=== PATIENT | female | born 1955 | race Caucasian/White ===

== ENCOUNTER → 2021-01-28 13:26 | Outpatient (BNVA) | payer OTHER, SELFPAY | PROVIDERS: Visit Provider Internal Medicine ==

== ENCOUNTER 2021-02-20 05:53 | Outpatient (REF) | payer OTHER, SELFPAY | END 2021-02-20 05:54 | disposition home or self-care (01) | LOC: HO.RADIR 05:53 | PROVIDERS: Visit Provider Internal Medicine | DX: Z13.89 Encounter for screening for other disorder (principal) ==

== ENCOUNTER 2021-02-27 06:16 | Outpatient (REF) | payer OTHER, SELFPAY | END 2021-02-27 06:17 | disposition home or self-care (01) | LOC: HO.RADIR 06:16 | PROVIDERS: Visit Provider Internal Medicine | DX: Z13.89 Encounter for screening for other disorder (principal) ==

== ENCOUNTER 2021-03-27 06:08 | Outpatient (REF) | payer OTHER, SELFPAY ==
--- NOTE | ~2021-03-27 | FL_ITS ---
EXAMINATION: XR FLUOROSCOPY WITH IMAGES CLINICAL INFORMATION: Sacrococcygeal disorder COMPARISON: None. TECHNIQUE: Fluoroscopy performed by Dr Honeycutt. Fluoroscopy time: 0.2 minutes DAP: 0.5 Gycm2 Images: 2 FINDINGS: Images demonstrate needle placement projecting over the right sacroiliac joint. FL/FL guidance in treatment room IMPRESSION: Fluoroscopic guidance for pain management procedure.
== END 2021-03-27 06:09 | disposition home or self-care (01) ==
LOC: HO.RADIR 06:08
PROVIDERS: Visit Provider Internal Medicine
DX: M53.3 Sacrococcygeal disorders, not elsewhere classified (principal); I10 Essential (primary) hypertension; E78.5 Hyperlipidemia, unspecified; F41.8 Other specified anxiety disorders; F17.210 Nicotine dependence, cigarettes, uncomplicated
CPT/HCPCS: J1040; Q9967

== ENCOUNTER 2021-04-03 06:00 | Outpatient (REF) | payer OTHER, SELFPAY ==
--- NOTE | ~2021-04-03 | FL_ITS ---
EXAMINATION: XR FLUOROSCOPY WITH IMAGES CLINICAL INFORMATION: M53.3 - Sacrococcygeal disorders, not elsewhere classified COMPARISON: Fluoroscopic spot views 03/27/2021 TECHNIQUE: Fluoroscopy performed by Dr. Didier Gavin. Fluoroscopy time: 0.2 minutes DAP: 0.638 Gycm2 Images: 2 FINDINGS: Spinal needle overlies mid right SI joint. Lateral view shows the needle tip at mid depth SI joint. FL/FL guidance in treatment room IMPRESSION: Fluoroscopy for pain management procedure.
== END 2021-04-03 06:01 | disposition home or self-care (01) ==
LOC: HO.RADIR 06:00
PROVIDERS: Visit Provider Internal Medicine
DX: M53.3 Sacrococcygeal disorders, not elsewhere classified (principal)
CPT/HCPCS: J1040; Q9967

== ENCOUNTER → 2021-04-05 11:27 | Outpatient (BNVA) | payer OTHER, SELFPAY | PROVIDERS: PCP Physical Medicine & Rehabilitation; Visit Provider Internal Medicine ==

== ENCOUNTER 2022-12-15 12:44 | Outpatient (AMB) | payer OTHER, SELFPAY ==
[2022-12-15 12:58] VITALS: BP 138/83; PULSE 61; RESP 12; BMI 26.5
--- NOTE | 2022-12-15 12:58 | MHC.OFFVIS ---
Intake Vital Signs 12/15/22 12:58 Height 5 ft 6 in Weight 164 lb BMI 26.5 BP 138/83 Blood Pressure Location Lt brachial Position Sitting Respiration 12 Pulse 61 Pulse Source Pulse Oximeter Intake Visit Reasons: injection discussion /confirmed Allergies hydrocodone Adverse Reaction (Severe, Verified 12/15/22 13:00) n/v tramadol Adverse Reaction (Severe, Verified 12/15/22 13:00) pancreatitis gabapentin Adverse Reaction (Intermediate, Verified 12/15/22 13:00) blurred vision Medication List - Last Reconciled 12/15/22 by Penelope Charles LPN atorvastatin 10 mg PO DAILY lorazepam 0.5 mg PO BID PRN metoprolol tartrate 50 mg PO DAILY oxycodone 5 mg PO QID PRN quetiapine mg PO venlafaxine ER 225 mg PO DAILY HPI injection discussion /confirmed HPI Details 67-year-old female who presents today to the office for a discussion of injection. She reports pain in her low back and buttocks. Pain is described as stabbing in nature that interferes with sleep and daily activities. She states that her sciatica pain is the same as it was before. She has to sit down or lay on the recliner to alleviate the pain. She performs stretching exercises at home. She is using the SIJ belt, which was provided by Dr. Bates. She is a smoker. She has tried physical therapy, chiropractic manipulation, and TENS therapy in the past without much relief. She denies any lower extremity weakness. Past procedures: 04/03/2021: Therapeutic intra-articular SIJ injection with bupivacaine + DepoMedrol 40m% relief, ongoing 2 days out 03/27/2021: Diagnostic intra-articular SIJ injection with bupivacaine only: 90% relief for 1 day [facility] Medical History (Updated 01/29/21 @ 15:23 by Didier Gavin MD) Sacroiliac joint dysfunction of right side Current smoker HTN (hypertension) Anxiety Depression Hyperlipidemia Social History (Updated 01/28/21 @ 14:07 by Ayden Riojas) Patient Tobacco Use Status: Current everyday Tobacco user Cigarette Packs Per Day: 0.5 Review of Systems Const All systems reviewed & are unremarkable except as noted in HPI and below Physical Exam Vital Signs: Last Vital Signs Pulse 61 12/15/22 12:58 Resp 12 12/15/22 12:58 BP 138/83 12/15/22 12:58 BMI result Body Mass Index 26.5 General: Appears afebrile. Alert and oriented. Mood and affect appropriate. Follows and participates in conversation appropriately. Respiratory effort is unlabored. Able to transition from sit to stand unassisted. Ambulates with bilaterally normal heel strike and toe off. YEFRI and Gaenslen's Test, SI joint distraction, thigh thrust and compression were all positive Results Reviewed Results Reviewed: 06/24/22: MR LUMBAR SPINE. Assessment & Plan Assessment & Plan (1) Sacroiliac joint dysfunction of right side: Code(s): M53.3 - Sacrococcygeal disorders, not elsewhere classified Plan Physical exam and prior history consistent with sacroiliac joint dysfunction in setting of prior lumbar spine surgery. I ordered an MRI scan of the sacroiliac joint for further evaluation in anticipation of potential right SI joint fusion. The patient continues to smoke. I counseled her that she will need to stop smoking for at least six weeks prior to proceeding with posterior SIJ fusion. Follow-up after SI joint MRI. Scribed for Dr. Gavin by Arpit Canchola, medical doctor md, on 12/15/2022. I, Dr. Gavin, have personally reviewed and agree with the information entered by the scribe. Orders: Orders MR sacroiliac joint FARAZ wo con 12/15/22 M53.3 - Sacrococcygeal disorders, not elsewhere classified Coding Level of Care Code Est Pt Level 3 (76242) Diagnoses Sacroiliac joint dysfunction of right side M53.3
== END 2022-12-15 13:53 | disposition home or self-care (01) ==
PROVIDERS: PCP Physical Medicine & Rehabilitation; Visit Provider Internal Medicine
DX: M53.3 Sacrococcygeal disorders, not elsewhere classified (principal)
CPT/HCPCS: 99213

== ENCOUNTER → 2022-12-15 12:44 | Outpatient (BNVA) | payer OTHER, SELFPAY | PROVIDERS: PCP Physical Medicine & Rehabilitation; Visit Provider Internal Medicine ==

== ENCOUNTER 2023-03-13 11:00 | Outpatient (AMB) | payer OTHER, SELFPAY ==
[2023-03-13 11:09] VITALS: BP 123/79; PULSE 59; RESP 12; O2SAT 99; BMI 27.0
--- NOTE | 2023-03-13 11:09 | A.OFFVIS_ITS ---
Intake Vital Signs 03/13/23 11:09 Height 5 ft 6 in Weight 167 lb BMI 27.0 BP 123/79 Blood Pressure Location Lt brachial Position Sitting Respiration 12 Pulse 59 Pulse Source Pulse Oximeter Pulse Oximetry (%) 99 Oxygen Delivery Method Room Air Intake Visit Reasons: Follow up/Disorder of Sacrum Allergies hydrocodone Adverse Reaction (Severe, Verified 03/13/23 11:12) n/v tramadol Adverse Reaction (Severe, Verified 03/13/23 11:12) pancreatitis gabapentin Adverse Reaction (Intermediate, Verified 03/13/23 11:12) blurred vision Medication List - Last Reconciled 03/13/23 by Penelope Charles, [place] atorvastatin 10 mg PO DAILY lorazepam 0.5 mg PO BID PRN metoprolol tartrate 50 mg PO DAILY oxycodone 5 mg PO QID PRN quetiapine 25 mg PO BEDTIME PRN venlafaxine ER 225 mg PO DAILY HPI Follow up/Disorder of Sacrum HPI Details 67-year-old female who presents today to the office for a follow-up disorder of the sacrum. She states that she has already exhausted physical therapy in the past. She has completed three different physical therapy sessions on different occasions in the past. Her last physical therapy was in 2014, and she has done only 3?4 sessions. Her insurance has declined her MRI scan due to lack of recent history of physical therapy. Past procedures: 04/03/2021: Therapeutic intra-articular S IJ injection with bupivacaine + DepoMedrol 40m% relief, ongoing 2 days out 03/27/2021: Diagnostic intra-articular SIJ injection with bupivacaine only: 90% relief for 1 day [facility] Medical History (Updated 01/29/21 @ 15:23 by Didier Gavin MD) Sacroiliac joint dysfunction of right side Current smoker HTN (hypertension) Anxiety Depression Hyperlipidemia Social History (Updated 01/28/21 @ 14:07 by Ayden Riojas) Patient Tobacco Use Status: Current everyday Tobacco user Cigarette Packs Per Day: 0.5 Review of Systems Const All systems reviewed & are unremarkable except as noted in HPI and below Physical Exam Vital Signs: Last Vital Signs Pulse 59 03/13/23 11:09 Resp 12 03/13/23 11:09 BP 123/79 03/13/23 11:09 Pulse Ox 99 03/13/23 11:09 Oxygen Delivery Method Room Air 03/13/23 11:09 BMI result Body Mass Index 27.0 General: Appears afebrile. Alert and oriented. Mood and affect appropriate. Follows and participates in conversation appropriately. Respiratory effort is unlabored. Able to transition from sit to stand unassisted. Ambulates with bilaterally normal heel strike and toe off. Results Reviewed Results Reviewed: No imaging is available for review. Assessment & Plan Assessment & Plan (1) Sacroiliac joint dysfunction of right side: Code(s): M53.3 - Sacrococcygeal disorders, not elsewhere classified Plan Physical exam and prior history consistent with sacroiliac joint dysfunction in setting of prior lumbar spine surgery. I ordered an MRI scan of the sacroiliac joint for further evaluation in anticipation of potential right SI joint fusion. The patient continues to smoke. I counseled her that she will need to stop smoking for at least six weeks prior to proceeding with posterior SIJ fusion. A referral was provided to physical therapy. A script was also provided to the patient for physical therapy. She will get herself evaluated at PT and contact us after formal PT for consideration of SI joint CT scan. Scribed for Dr. Gavin by Arpit Canchola, ophthalmic medical assistant, on 03/13/2023. I, Dr. Gavin, have personally reviewed and agree with the information entered by the scribe. Orders: Orders PT Evaluation and Treatment 03/13/23 M53.3 - Sacrococcygeal disorders, not elsewhere classified Coding Level of Care Code Est Pt Level 3 (39051) Diagnoses Sacroiliac joint dysfunction of right side M53.3
== END 2023-03-13 11:41 | disposition home or self-care (01) ==
PROVIDERS: PCP Nurse Practitioner Family; Visit Provider Internal Medicine
DX: M53.3 Sacrococcygeal disorders, not elsewhere classified (principal)
CPT/HCPCS: 99213

== ENCOUNTER → 2023-03-13 11:00 | Outpatient (BNVA) | payer OTHER, SELFPAY | PROVIDERS: PCP Nurse Practitioner Family; Visit Provider Internal Medicine ==

== ENCOUNTER 2024-02-19 17:42 | Outpatient (REF) | payer OTHER, SELFPAY ==
--- NOTE | ~2024-02-19 | MR_ITS ---
CLINICAL HISTORY: PERSISTENT SI JOINTS PAIN - PRE-OP MR pelvis without gadolinium Comparison: None Findings: Pronounced facet arthritis cvict-xvjeuue-jovi-left at L5-S1 with reactive marrow change involving the posterior aspect of the S1 vertebrae on the right. Remainder of the marrow signal is normal. Normal-appearing SI joints. No ankylosis. No marrow like edema. No erosions. Normal marrow signal of the pubic rami. Intact symphysis pubis. Physiologic amount of fluid in both hips. Superior joint space narrowing both hips with near fywp-li-wayn appearance. No reactive subchondral marrow changes or significant hypertrophic changes. No erosions. Degenerative signal changes within the acetabular labrum without large or displaced labral tear on either side. No paralabral cyst. Degenerative changes lumbar spine with mid lumbar dextroscoliosis. Prominent Modic type 1 reactive endplate changes L3-4. Lateral recess narrowing and foraminal narrowing eccentric to the left at L2-3, L3-4 and changes greater to the right at L4-5 with prior right hemilaminectomy. Marked facet arthritis ubehu-hqihixr-izuq-left at L5-S1. Subligamentous disc protrusion and annular fissuring. Patent L5 foramina. Suboptimal assessment of the lumbar spine on large bobto-gt-yrcf imaging. 19 mm cyst without solid component or septations in the left ovary, compatible with an O-RADS 2, almost certainly benign lesion. Urinary bladder intact. Sigmoid diverticulosis without objective features of acute diverticulitis. IMPRESSION: Normal-appearing SI joints. Pronounced lower lumbar facet arthritis most pronounced L5-S1 pojdo-rkupgmf-jvgk-left with marrow like edema involving the posterior aspect of the upper sacrum. Additional degenerative changes lumbar spine as noted. Consider follow-up dedicated lumbar spine MRI if clinical management warrants. Mild degenerative arthritis in the hips greater superiorly. No significant hypertrophic changes. No erosions. Soft tissues intact. Small cyst left ovary as detailed. No follow-up required. This document has been electronically signed by: Jax Ocasio MD on 02/23/2024 13:28:10
== END 2024-02-19 17:43 | disposition home or self-care (01) ==
LOC: HO.MRI 17:42
PROVIDERS: PCP Nurse Practitioner Family; Visit Provider Internal Medicine
DX: M53.3 Sacrococcygeal disorders, not elsewhere classified (principal)
CPT/HCPCS: 72195

== ENCOUNTER → 2024-02-19 17:45 | Outpatient (BNV) | payer OTHER, SELFPAY | PROVIDERS: PCP Nurse Practitioner Family; Visit Provider Radiology Diagnostic Radiology | DX: M53.3 Sacrococcygeal disorders, not elsewhere classified (principal) | CPT/HCPCS: 72195 ==

== ENCOUNTER 2024-03-14 13:22 | Outpatient (AMB) | payer OTHER, SELFPAY ==
--- NOTE | 2024-03-14 13:24 | MHC.OFFVIS ---
Vital Signs 03/14/24 13:25 Height 5 ft 7 in Weight 171 lb BMI 26.8 BP 153/74 H Blood Pressure Location Lt brachial Position Sitting Respiration 16 Pulse 70 Pulse Source Pulse Oximeter Pulse Oximetry (%) 92 Oxygen Delivery Method Room Air Intake Visit Reasons: Discuss MRI Results Allergies hydrocodone Adverse Reaction (Severe, Verified 03/14/24 13:27) n/v tramadol Adverse Reaction (Severe, Verified 03/14/24 13:27) pancreatitis gabapentin Adverse Reaction (Intermediate, Verified 03/14/24 13:27) blurred vision Medication List - Last Reconciled 03/14/24 by Penelope Charles LPN atorvastatin 10 mg PO DAILY lorazepam 0.5 mg PO BID PRN metoprolol tartrate 50 mg PO DAILY oxycodone 5 mg PO QID PRN quetiapine 25 mg PO BEDTIME PRN venlafaxine ER 225 mg PO DAILY HPI HPI Discuss MRI Results: Details: History of Present Illness The patient is a 68-year-old female presenting with persistent right-sided lower back pain. She reports the pain has been ongoing for years, with occasional exacerbations. The pain was previously believed to be associated with her sacroiliac joint; however, an MRI of the sacroiliac joint was read as normal, dismissing sacroiliitis as a source. More recently, imaging revealed significant arthritis at the right L5-S1 facet joint with an accompanying inflammatory response. The patient has experienced two distinct types of pain, one at S1 and another unspecified. She feels disappointed by the ongoing discomfort despite past conservative measures, such as physical therapy and medications like oxycodone and amlofaxine. The patient's was involved in advocating for past treatment options, such as discussions about experimental SI joint interventions, ultimately denied by insurance. Pain Description - Onset and Timing: Chronic, with longstanding symptoms of several years - Quality and Character: Persistent and aching, corresponding to the inflammatory features at the L5-S1 facet joint on the right - Primary Location: Right-sided lower back - Radiation: Pain may radiate down the leg, stopping at the back of the knee - Exacerbating Factors: Long-term postural habits such as sitting with the right leg up - Relieving Factors: Limited success; prior physical therapy reportedly worsened symptoms - Activities Interference: General limitations on daily activities and physical functioning Physical Exam - Facet loading is positive on the right - Imaging: Normal MRI of the sacroiliac joint; MRI showing significant arthritis and degenerative changes at right L5-S1 facet - Notable findings: Vertebral endplate changes, degenerative disc changes, multifidus dysfunction Pain Management - Affect: Disappointment and frustration due to the lack of progress despite efforts - Analgesia: Currently on oxycodone 5 mg for pain relief, which aids in general function - Adverse Effects: Not explicitly discussed - Activities of Daily Living: Pain inhibits function and mobility, affecting daily tasks - Aberrant Drug-Related Behaviors: None reported [facility] Medical History (Updated 03/14/24 @ 13:55 by Didier Gavin MD) Sacroiliac joint dysfunction of right side Current smoker HTN (hypertension) Anxiety Depression Hyperlipidemia Social History (Updated 01/28/21 @ 14:07 by Ayden Riojas) Patient Tobacco Use Status: Current everyday Tobacco user Cigarette Packs Per Day: 0.5 Physical Exam Vital Signs: Last Vital Signs Pulse 70 03/14/24 13:25 Resp 16 03/14/24 13:25 BP 153/74 H 03/14/24 13:25 Pulse Ox 92 03/14/24 13:25 Oxygen Delivery Method Room Air 03/14/24 13:25 BMI result Body Mass Index 26.8 Assessment & Plan Assessment & Plan (1) Effusion of lumbar facet joint: Code(s): M25.48 - Effusion, other site Category: Medical (2) Vertebrogenic low back pain: Code(s): M54.51 - Vertebrogenic low back pain Category: Medical Plan Plan - Schedule right L5-S1 facet joint aspiration and corticosteroid injection to manage inflammatory component and alleviate pain - Order MRI of the lumbar spine to evaluate vertebral and facet conditions further - Consider temporary nerve stimulation of the L4 medial branch nerve if the facet intervention is ineffective - Explore vertebrogenic pain causations, with potential for basivertebral nerve ablation - Evaluate natural anti-inflammatory supplements such as turmeric for additional support Patient was informed and verbally consented to the use of an ambient scribe for clinic note documentation during this visit. Discussion Notes In our discussion, I explained that the MRI results for the sacroiliac joint were normal, effectively eliminating it as the source of her pain. We emphasized that significant arthritis at the right L5-S1 facet joint was likely contributing to her symptoms. I discussed the option of using a corticosteroid injection into the affected area as a potential relief for her axial pain. Furthermore, we considered the possibility of nerve stimulation and other interventions should pain persist or recur. We addressed possible reasons for insurance denial of previous interventions and clarified the rationale for the proposed treatment plan. I assured her that the focus would be on alleviating pain and improving her quality of life, and we discussed potential imaging follow-up for comprehensive assessment. We also reviewed lifestyle modifications, including the role of turmeric in pain management. Patient Instructions - Undergo a scheduled right L5-S1 facet joint corticosteroid injection - Obtain an MRI of the lumbar spine as instructed - Discuss with me the feasibility of adding turmeric or similar supplements to manage inflammation - Continue current pain medication regimen until further advice - Follow shared plan for pain management strategies and avoidance of exacerbation triggers - Contact my office for any unforeseen changes in symptoms or intolerances Orders: Orders MR lumbar spine wo con 03/14/24 M25.48 - Effusion, other site, M54.51 - Vertebrogenic low back pain Coding Level of Care Code Est Pt Level 4 (06844) Diagnoses Effusion of lumbar facet joint M25.48 Vertebrogenic low back pain M54.51
[2024-03-14 13:25] VITALS: BP 153/74; PULSE 70; RESP 16; O2SAT 92; BMI 26.8
--- OUTSIDE RECORDS SUMMARY | 2024-03-14 18:05 | XMS_ITS | Clinical Summary ---
Author Organization [facility] Address [address] [place] [id number] Care Team Providers Care Industrial Sociologist Name Role Phone Rebecca Dawkins Primary Care Provider [phone] Allergies Active Allergy Reactions Criticality Noted Date Comments Gabapentin Other (See Comments) 04/15/2016 Per patient '' vision issues'' Tramadol Other (See Comments) 04/15/2016 Per patient ''pancreas problem'' Hydrocodone-Acetaminop hen Other (See Comments) 04/15/2016 vomit Medications Medication Sig Dispensed Refills Start Date End Date Status atorvastatin (LIPITOR) tablet 10 mg TAKE 1 TABLET BY MOUTH EVERY DAY 2 03/14/2016 Active metoprolol succinate (TOPROL-XL) 24 hr tablet 25 mg Take 25 mg by mouth daily. 3 01/17/2016 Active metoprolol tartrate (LOPRESSOR) 50 MG tablet TAKE 1 TABLET BY MOUTH WITH FOOD DAILY 1 03/29/2016 Active oxyCODONE (ROXICODONE) 5 MG immediate release tablet Take 5 mg by mouth 3 (three) times a day. 0 04/08/2016 Active venlafaxine (EFFEXOR-XR) 37.5 MG 24 hr capsule TAKE 1 CAPSULE BY MOUTH ONCE DAILY 0 01/23/2016 Active venlafaxine (EFFEXOR-XR) 150 MG 24 hr capsule TAKE ONE CAPSULE BY MOUTH EVERY DAY 3 04/06/2016 Active LORazepam (ATIVAN) 0.5 MG tablet 0.5 mg. 0 04/30/2016 Active pregabalin (LYRICA) 75 MG capsuleIndications:Ch ronic right-sided low back pain with sciatica, sciatica laterality unspecified Take 1 capsule (75 mg total) by mouth 2 (two) times a day. 60 capsule 2 07/18/2016 Active Active Problems Problem Noted Date Diagnosed Date Chronic pain syndrome 10/14/2016 Somatic dysfunction of rib 09/03/2016 Somatic dysfunction of cervical region 7 Somatic dysfunction of sacral region 09/03/2016 Somatic dysfunction of lower extremity 7 Chronic right-sided low back pain with right-maribell ed sciatica 04/15/2016 Lumbar radiculopathy 04/15/2016 Ischial bursitis 04/15/2016 Pelvic region somatic dysfunction 04/15/2016 Myalgia 04/15/2016 Family History Medical History Relation Name Comments Cancer Mother Relation Name Status Comments Mother Social History Tobacco Use Types Packs/Day Years Used Date Smoking Tobacco: Every Day Smokeless Tobacco: Never Alcohol Use Standard Drinks/Week Comments Yes 0 (1 standard drink = 0.6 oz pur e alcohol) Sex and Gender Information Value Date Recorded Sex Assigned at Not on file Gender Identity Not on file Sexual Orientation Not on file Last Filed Vital Signs Vital Sign Reading Time Taken Comments Blood Pressure 142/86 07/17/2016 2:13 PM EDT Pulse 79 07/17/2016 2:13 PM EDT Temperature 36.1 ??C (96.9 ??F) 06/12/2016 12:56 PM E DT Respiratory Rate - - Oxygen Saturation 99% 07/17/2016 2:13 PM EDT Inhaled Oxygen Concentration - - Weight 83.5 kg (184 lb) 07/17/2016 2:13 PM EDT Height 170.2 cm (5' 7 ) 07/17/2016 2:13 PM EDT Body Mass Index 28.82 07/17/2016 2:13 PM EDT Plan of Treatment Health Maintenance Due Date Last Done Comments Hepatitis C Screening 1955 COVID-19 Vaccine (#1) 01[birth year]26/1956 Pneumococcal Vaccine (1 of 2 - PCV) 07/28/1959 Depression Screening 1965 Preventative Health Evaluation 07/28/1971 DTap / Tdap / Td (1 - Tdap) 1972 Colon Cancer Screening (Colonoscopy) 1998 Breast Cancer Screening (Mammogram) 07/28/2003 Shingrix-Zoster Vaccine (1 of 2) 07/28/2003 Fall Risk Assessment 2018 Osteoporosis Screening (DEXA Scan) 2018 Influenza Vaccine (#1) 2023 RSV Adult > 60+ Yrs or Pregn ant (1 - 1-dose 75+ series) 2028 Hepatitis B Vaccines Aged Out No long er eligible based on patient's age to complete this topic RSV Ped < 20 months Aged Out No longe r eligible based on patient's age to complete this topic Care Teams Industrial Sociologist Relationship Specialty Start Date End Date Rebecca Dawkins [address] [place] [id number] PCP - General Family Medicine 04/15/16
--- OUTSIDE RECORDS SUMMARY | 2024-03-14 18:05 | XMS_ITS | Encounter Summary ---
Author Organization [employer] Address [address] [facility] [address] [place] [address] Care Team Providers Care Carburizer Name Role Phone Rebecca Cardenas CNP Primary Care Provider [phone] Reason for Visit * Reason Onset Date Comments Med Refill 02/25/2024 Encounter Details Date Type Department Care Team (Late st Contact Info) Description 02/25/2024 Refill [facility] [address] [place] [address] Rebecca Cardenas CNP [address] [place] [address] Failed back syndrome; Epidural fibrosis Social History Tobacco Use Types Packs/Day Years Used Date Smoking Tobacco: Every Day Cigarettes 0.8 35 Smokeless Tobacco: Never Alcohol Use Standard Drinks/Week Comments Not Currently 0 (1 standard drink = 0.6 oz pur e alcohol) Rarely Depression Answer Date Recorded Patient Health Questionnaire-9 Score 5 07/29/2023 Patient Health Questionnaire-9 Score 5 07/29/2023 Last PHQ-9: Questionnaire Data Not on file 0 07/29/2023 Housing Stability Answer Date Recorded What is your housing situation today? I have martín caballero 11/04/[address] you li ve. Do you have problems with any of the following? None of the above 11/04/2023 Food Insecurity Answer Date Recorded Within the past 12 months, y ou worried that your food would run out before you got money to buy more: Never True 07/29/2023 Within the past 12 months,th e food you bought just didn't last and you didn't have enough money to get more: Never True 01/2024 Transportation Answer Date Recorded In the past 12 months, has l ack of transportation kept you from medical appts, meetings, work or from getting things needed for daily living? No 07/29/2023 Utilities Answer Date Recorded In the past 12 months, has t he electric, gas, oil or water company threatened to shut off services in your home? No 07/29/2023 Depression Answer Date Recorded Patient Health Questionnaire-2 Score 0 11/04/2023 Internet Access Answer Date Recorded Internet Access Q1 Yes 11/04/2023 Internet Access Q2 Not on file 11/04/2023 Education Answer Date Recorded What is the highest level of school you have completed or the highest degree you have received? 12th grade 01/06/2023 Comments Unknown Sex and Gender Information Value Date Recorded Sex Assigned at Female 01/23/2022 1:31 PM EST Legal Sex Female 8:38 PM EDT Gender Identity Female 01/23/2022 1:31 PM EST Sexual Orientation Straight 01/23/2022 2: 27 PM EST Occupation Industry Job Start Date Job End Date Retired Not on file Not on file Not on file documented as of this encounter Miscellaneous Notes * Telephone Encounter - Brooklynn Rodas CMA - 02/25/2024 7:56 AM EST Oxycodone 5mg [place] Last fill Date: 01/30/24 Last OV: 02/02/25 Next OV: 05/03/24 Last UTOX: 11/04/23 CSA Date: 07/29/23 DNF Date: 02/27/24 documented in this encounter Plan of Treatment Upcoming Encounters Date Type Department Care Team (Late st Contact Info) Description 05/03/2024 2:30 PM EDT Office Visit [place] [facility] [address] [place] [address] Rebecca Cardenas, MEL [address] [place] [address] documented as of this encounter Visit Diagnoses Diagnosis Failed back syndrome Other unspecified back disorder Epidural fibrosis documented in this encounter Additional Health Concerns Assessment Noted Time PHQ-9 Depression Total Score: 5 07/29/19 24 3:16 PM EDT documented as of this encounter Care Teams Carburizer Relationship Specialty Start Date End Date Rebecca Cardenas CNP [address] [place] [address] PCP - General Family Medicine 01/08/22 documented as of this encounter
--- OUTSIDE RECORDS SUMMARY | 2024-03-14 18:05 | XMS_ITS | Encounter Summary ---
Author Organization [employer] Address [address] [place] [address] Care Team Providers Care Acid Blower Name Role Phone Rebecca Cardenas CNP Primary Care Provider [phone] Encounter Details Date Type Department Care Team (Late st Contact Info) Description 01/08/2022 Abstract [facility] MED[facility] [address] [place] [address] Rebecca Cardenas CNP [address] [place] [address] Social History Tobacco Use Types Packs/Day Years Used Date Smoking Tobacco: Never Assessed Comments Unknown Sex and Gender Information Value Date Recorded Sex Assigned at Female 01/23/2022 1:31 PM EST Legal Sex Female 8:38 PM EDT Gender Identity Female 01/23/2022 1:31 PM EST Sexual Orientation Straight 01/23/2022 2: 27 PM EST documented as of this encounter Plan of Treatment Upcoming Encounters Date Type Department Care Team (Late st Contact Info) Description 05/03/2024 2:30 PM EDT Office Visit [facility] MED[facility] [address] [place] [address] Rebecca Cardenas CNP [address] [place] [address] documented as of this encounter Visit Diagnoses Not on filedocumented in this encounter Care Teams Acid Blower Relationship Specialty Start Date End Date Rebecca aCrdenas CNP [address] [place] [address] PCP - General Family Medicine 01/08/22 documented as of this encounter
--- OUTSIDE RECORDS SUMMARY | 2024-03-14 18:05 | XMS_ITS | Clinical Summary ---
Author Organization [facility] Address [address] [place] [address] Care Team Providers Care Power Technician Name Role Phone RangelkerlineOsirisRebecca Eulalio CLOTH COVERER Primary Care Provider [phone] Family History Medical History Relation Comments Cancer Mother Heart disease Mother Hypertension Mother Relation Status Comments Father Mother Alive Social History Tobacco Use Types Packs/Day Years Used Date Smoking Tobacco: Every Day Alcohol Use Standard Drinks/Week Comments Yes 0 (1 standard drink = 0.6 oz pure alcohol) Alcoholic Drinks/day: Occasional social drink Comments Unknown Sex and Gender Information Value Date Recorded Sex Assigned at Not on file Legal Sex Female 4:39 PM EST Gender Identity Not on file Sexual Orientation Not on file Plan of Treatment Health Maintenance Due Date Last Done Comments Breast Cancer Screening 1955 Pneumococcal Vaccine: 65+ Ye ars (1 of 2 - PCV) 07/28/1961 Colorectal Cancer Screening: Annual FOBT 2002 Colorectal Cancer Screening: Colonoscopy 2002 Colorectal Cancer Screening: Sigmoidoscopy 2002 Influenza Vaccine (#1) 2023 Hepatitis B Vaccine Aged Out No longe r eligible based on patient's age to complete this topic Insurance [facility] Care Teams Power Technician Relationship Specialty Start Date End Date Rebecca Cardenas NP [address] [place] [phone] PCP - General Nurse Practitioner 10/24/21
--- OUTSIDE RECORDS SUMMARY | 2024-03-14 18:05 | XMS_ITS | Clinical Summary ---
Author Organization [employer] Address [address] [place] [address] 7[address] [place] [address] Care Team Providers Care Recycling Director Name Role Phone Rebecca Cardenas AUDIOVISUAL LIBRARIAN Primary Care Provider [phone] Allergies Active Allergy Reactions Criticality Noted Date Comments Gabapentin Medium 04/15/2016 Blurry vision Other reaction(s): Other (See Comments), Other (See Comments), vision problems Per patient '' vision issues'' Per patient '' vision issues'' Hydrocodone-Acetaminop hen Other,Nausea And Vomiting Low 04/15/2016 vomitting Other reaction(s): Other (See Comments) vomit Pregabalin Medium 05/13/2017 Vision issues Tramadol Medium 04/15/2016 vomitting Other reaction(s): Other (See Comments), Other (See Comments) Per patient ''pancreas problem'' Per patient ''pancreas problem'' Medications LORazepam (Ativan) 0.5 MG tablet 1 tablet. As needed 11/23/19 22 Active QUEtiapine (SEROquel) 25 MG tablet Take 1 tablet by mouth at bedtime. Active venlafaxine XR (Effexor XR) 225 MG 24 hr tabletIndication s:Anxiety disorder, unspecified TAKE 1 TABLET BY MOUTH EVERY DAY WITH FOOD FOR 30 DAYS 90 tablet 2 03/10/19 23 Active atorvastatin (Lipitor) 10 MG tabletIndication s:Hyperlipidemia , unspecified TAKE 1 TABLET BY MOUTH EVERY DAY 90 tablet 3 06/19/19 24 Active venlafaxine XR (Effexor XR) 150 MG 24 hr capsule Take 150 mg by mouth Once per day. 06/03/19 24 Active oxyCODONE (Roxicodone) 5 MG immediate release tabletIndication s:Failed back syndrome,Epidura l fibrosis Take 1 tablet (5 mg) by mouth 5 (five) times a day for 28 days. 140 tablet 02/24/19 25 025 Active metoprolol tartrate (Lopressor) 75 MG tabletIndication s:Essential (primary) hypertension TAKE 1 TABLET BY MOUTH TWICE A DAY 180 tablet 1 02/28/19 25 Active metoprolol tartrate (Lopressor) 75 MG tabletIndication s:Essential (primary) hypertension TAKE 1 TABLET BY MOUTH TWICE A DAY 180 tablet 1 08/10/19 24 025 Discontinued oxyCODONE (Roxicodone) 5 MG immediate release tabletIndication s:Failed back syndrome,Epidura l fibrosis Take 1 tablet (5 mg) by mouth 5 (five) times a day for 28 days. 140 tablet 01/28/20 24 025 Discontinued(Re order (will not trigger notification to Pharmacy)) Active Problems Problem Noted Date Diagnosed Date Anxiety 01/23/2022 Depression 01/14/2022 Epidural fibrosis 01/08/2022 Failed back syndrome 01/08/2022 Palpitations 01/08/2022 Smoker 01/08/2022 Stage 3b chronic kidney disease 01/08/2022 Overweight (BMI 25.0-29.9) 01/08/2022 Insomnia 01/08/2022 Hypertension 01/08/2022 Hyperlipidemia 01/08/2022 GERD (gastroesophageal reflux disease) Chronic pain Resolved Problems Problem Noted Date Diagnosed Date Resolved Date Major depressive disorder, s vandana episode, unspecified 01/08/2022 01/14/2022 Encounters Date Type Department Care Team Description 03/04/[address] [address] Rebecca Cardenas CNP insurance referral 02/29/2024 Refill [facility] MED[facility] [address] [place] [address] Rebecca Cardenas CNP Essential (primary) hypertension 02/25/[address] [address] Rebecca Cardenas CNP Failed back syndrome; Epidural fibrosis 02/03/2024 3:00 PM EST Office Visit [facility] [address] [place] [address] Rebecca Cardenas CNP Type 2 diabetes mellitus with stage 3a chronic kidney disease, without long-term current use of insulin (CMS/HCC) (Primary Dx); Mixed hyperlipidemia; Failed back syndrome; Gastroesophageal reflux disease without esophagitis; Primary hypertension; Severe episode of recurrent major depressive disorder, without psychotic features (CMS/HCC); Anxiety; Other chronic pain 01/27/2024 Refill [facility] MED[facility] [address] [place] [address] Rebecca Cardenas CNP Failed back syndrome; Epidural fibrosis 12/30/2023 Refill [facility] MED[facility] [address] [place] [address] Rebecca Cardenas CNP Failed back syndrome; Epidural fibrosis from Last 3 Months Immunizations Name Administration Dates Next Due Gian SARS-CoV-2 Vaccination 02/14/2021,2020 Rabies Immune Globulin 10/23/2020 Rabies, IM Diploid Cell Culture 10/23/2020 Tdap 06/13/2021 Family History Medical History Relation Name Comments Heart disease Brother 1 Cancer Mother Hyperlipidemia Mother htn Mother Relation Name Status Comments Brother 1 Brother 2 Brother 3 Alive Brother 4 Alive Father Mother Sister Alive Social History Tobacco Use Types Packs/Day Years Used Date Smoking Tobacco: Every Day Cigarettes 0.8 35 Smokeless Tobacco: Never Tobacco Cessation:Ready to Q uit: Not Asked; Counseling Given: Not Answered Alcohol Use Standard Drinks/Week Comments Not Currently [...] file Not on file Not on file Last Filed Vital Signs Vital Sign Reading Time Taken Comments Blood Pressure 146/88 02/03/2024 2:49 PM EST Pulse 68 02/03/2024 2:49 PM EST Temperature 35.7 ??C (96.2 ??F) 02/03/2024 2:49 PM ES T Respiratory Rate 20 02/03/2024 2:49 PM EST Oxygen Saturation 98% 02/03/2024 2:49 PM EST Inhaled Oxygen Concentration - - Weight 74.8 kg (165 lb) 02/03/2024 2:49 PM EST Height 170.2 cm (5' 7 ) 02/03/2024 2:49 PM EST Body Mass Index 25.84 02/03/2024 2:49 PM EST Plan of Treatment Upcoming Encounters Date Type Department Care Team (Late st Contact Info) Description 05/03/2024 2:30 PM EDT Office Visit [facility] [address] [place] [address] Rebecca Cardenas, MEL [address] [place] [address] Health Maintenance Due Date Last Done Comments CT Colonography 1953 FIT 1955 FOBT 1955 Sigmoidoscopy 1955 Pneumococcal Vaccine: 65+ Years (1 of 2 - PCV) 07/28/1959 Diabetes: Foot Exam 07/28/1963 Eye Exam 07/28/1963 Alcohol/Substance Use Screening 1965 Hepatitis C Screening 07/28/1971 Zoster Vaccines (1 of 2) 07/28/2003 RSV Patients and Patients Aged 60 years or older (1 - Risk 60-74 years 1-dose series) 2013 Colonoscopy 07/11/2020 07/11/2010, 06/21/2010 COVID-19 Vaccine ( season) 2023 02/14/2021, 2020 Influenza Vaccine (#1) 2023 Lung Cancer Screening 02/26/2024 02/25/2023 Diabetes: Hemoglobin A1C 05/04/2024 11/05/2023 Depression Screening 11/03/2024 11/04/2023, 07/29/19 24 Lipid Panel 11/03/2024 11/04/2023, 07/0 09/2021, 02/05/2021, Additional history exists SDOH Screening 11/03/2024 11/04/2023 Tobacco Screening 02/02/2025 02/03/2024 Mammogram 11/10/2025 11/11/2023, 04/16, 07/11/2021, Additional history exists Colorectal Cancer Screening 09/06/2026 FIT DNA/Cologuard 09/06/2026 09/07/2023 DTaP/Tdap/Td Vaccines (2 - Td or Tdap) 06/14/2031 06/13/2021 HIB Vaccines Aged Out No longer eligi ble based on patient's age to complete this topic HPV Vaccines Aged Out No longer eligi ble based on patient's age to complete this topic Hepatitis A Vaccines Aged Out No long er eligible based on patient's age to complete this topic Hepatitis B Vaccines Aged Out No long er eligible based on patient's age to complete this topic IPV Vaccines Aged Out No longer eligi ble based on patient's age to complete this topic Meningococcal Vaccine Aged Out No radha janina eligible based on patient's age to complete this topic RSV under 20 months Aged Out No longe r eligible based on patient's age to complete this topic Rotavirus Vaccines Aged Out No longer eligible based on patient's age to complete this topic Procedures Procedure Name Priority Date/Time Associated Diagnosis Comments BI MAMMOGRAM SCREENING TOMOSYNTHESIS BILATERAL Routine 11/11/2023 12:57 PM EDT HEMOGLOBIN A1C Routine 11/05/2023 1:00 PM EDT Elevated glucose level LIPID PANEL, STANDARD Routine 11/04/2023 3:06 PM EDT Primary hypertension Mixed hyperlipidemia LAB COLOGUARD?? COLON CANCER SCREEN Routine 09/07/2023 11:30 AM EDT Health maintenance examination Colon cancer screening CT LOW DOSE SCREENING Routine 02/25/2023 2:26 PM EST HM COLONOSCOPY Routine 07/11/2010 from Last 3 Months or Most Recently Relevant to Health Maintenance Results * BI Mammogram Screening Tomosynthesis Bilateral (11/11/2023 12:57 PM EDT) Anatomical Region Laterality Modality Breast Bilateral Mammography 11/11/2023 12:5 7 PM EDT Narrative 11/11/2023 3:01 PM EDT PROCEDURE: MM Digital Mammo Screening INDICATION: Screening for breast cancer. COMPARISON: Multiple priors, most recently 07/11/2021 TECHNIQUE: Full-field digital CC and MLO 3D tomosynthesis images of both breasts were acquired. Computer-aided detection (CAD) was utilized in the interpretation of this study. DENSITY: The breast tissue is heterogeneously dense, which may obscure small masses. FINDINGS: No suspicious masses, suspicious microcalcifications, or areas of architectural distortion are seen in either breast to suggest malignancy. IMPRESSION: No mammographic evidence of malignancy. RECOMMENDATION: Annual mammographic screening BI-RADS: 1 (Negative) Lay letter mailed to patient WSN: [id number] Ordering Physician: Rebecca Cardenas Dictated By: ?Darian Vizcaino MD Dictated Date/Time: ?11/11/23 2:58 pm Reviewed By: ?Darian Vizcaino MD Signed By: ? Darian Vizcaino MD Signed Date/Time: ? 11/11/23 2:58 pm Transcribed By: ? [facility] Oracle Identity Management Consultant Date/Time: ? 11/11/23 2:55 pm Birads: Procedure Note Donotuseinterpreter, Image - 11/11/2023 PROCEDURE: MM Digital Mammo Screening INDICATION: Screening for breast cancer. COMPARISON: Multiple priors, most recently 07/11/2021 TECHNIQUE: Full-field digital CC and MLO 3D tomosynthesis images of bothbreasts were acquired. Computer-aided detection (CAD) was utilized in theinterpretation of this study. DENSITY: The breast tissue is heterogeneously dense, which may obscuresmall masses. FINDINGS: No suspicious masses, suspicious microcalcifications, or areasof architectural distortion are seen in either breast to suggestmalignancy. IMPRESSION: No mammographic evidence of malignancy. RECOMMENDATION: Annual mammographic screening BI-RADS: 1 (Negative) Lay letter mailed to patient WSN: [id number] Ordering Physician: Rebecca Cardenas Dictated By: Darian Vizcaino MD Dictated Date/Time: 11/11/23 2:58 pm Reviewed By: Darian Vizcaino MD Signed By: Darian Vizcaino MD Signed Date/Time: 11/11/23 2:58 pm Transcribed By: PARVEEN [employer] Management Consultant Date/Time: 11/11/23 2:55 pm Birads: Rebecca Cardenas [facility] IMG BI PROCEDURES Final Resul t * (ABNORMAL) Hemoglobin A1c (11/05/2023 1:00 PM EDT) Hemoglobin A1c 6.0(H) 4.8 - 5.6 % [facility] 1 Comment: ? Prediabetes: 5.7 - 6.4 ? Diabetes: >6.4 ? Glycemic control for adults with diabetes: <7.0 Blood Venous blood specimen / Unknown 11/05/2023 1:00 PM EDT 11/05/2023 Narrative [facility] 1 - 11/06/2023 6:05 AM EDT Performed at: ??01 - [facility] [address] ??[id number] Payment Poster: Haydee Carrizales MD, Phone: ??[phone] us Rebecca Rangelx AUDIOVISUAL LIBRARIAN LAB BLOOD ORDERABLES Final Re sult Performing Organization Address [facility] de Phone Number [facility] 1 * Lipid Panel, Standard (11/04/2023 3:06 PM EDT) Cholesterol, Total 180 100 - 199 mg/dL [facility] 1 Triglycerides 109 0 - 149 mg/dL [facility] 1 HDL Cholesterol 70 >39 mg/dL [facility] 1 VLDL Cholesterol Sharad 19 5 - 40 mg/dL [facility] 1 LDL Chol Calc (NIH) 91 0 - 99 mg/dL [facility] 1 Blood Venous blood specimen / Unknown 11/04/2023 3:06 PM EDT 11/04/2023 Narrative [facility] 1 - 11/05/2023 6:05 AM EDT Performed at: ??01 - [facility] [address] ??[id number] Payment Poster: Haydee Carrizales MD, Phone: ??[phone] us Rebecca Challaura AUDIOVISUAL LIBRARIAN LAB BLOOD ORDERABLES Final Re sult Performing Organization Address [facility] Co de Phone Number [facility] 1 * Cologuard?? colon cancer screening (09/07/2023 11:30 AM EDT) Cologuard Result Negative Negative 09/15/19 5:46 PM EDT [facility] (CLIA #:[id number]) Comment: NEGATIVE TEST RESULT. A negative Cologuard result indicates a low likelihood that a colorectal cancer (CRC) or advanced adenoma (adenomatous polyps with more advanced pre-malignant features) ??is present. The chance that a person with a negative Cologuard test has a colorectal cancer is less than 1 in 1500 (negative predictive value >99.9%) or has an ??advanced adenoma is less than ??5.3% (negative predictive value 94.7%). These data are based on a prospective cross-sectional study of 10,000 individuals at average risk for colorectal cancer who were screened with both Cologuard and colonoscopy. (Hilton Newton al, N Engl J Med 2014;370(14):1286- 1297) The normal value (reference range) for this assay is negative. COLOGUARD RE-SCREENING RECOMMENDATION: Periodic colorectal cancer screening is an important part of preventive healthcare for asymptomatic individuals at average risk for colorectal cancer. ??Following a negative Cologuard result, the [place] [employer] Society and U.S. Multi-Society Task Force screening guidelines recommend a Cologuard re-screening interval of 3 years. References: [place] [employer] Guideline for Colorectal Cancer Screening: https://www.cancer.org/cancer/zvqmm-jtsvxt-auuwwz/cmqpxhflb-paiunsrsx-vsfhryf/ac s-rec ommendations.html.; Nick DK, Domonique OCHOA, Kieran GilbertK, Colorectal Cancer Screening: Recommendations for Physicians and Patients from the U.S. Multi-Society Task Force on Colorectal Cancer Screening , Am J Gastroenterology 2017; 112:7757-4625. TEST DESCRIPTION: Composite algorithmic analysis of stool DNA-biomarkers with hemoglobin immunoassay. ?? Quantitative values of individual biomarkers are not reportable and are not associated with individual biomarker result reference ranges. Cologuard is intended for colorectal cancer screening of adults of either sex, 45 years or older, who are at average-risk for colorectal cancer (CRC). Cologuard has been approved for use by the U.S. FDA. The performance of Cologuard was established in a cross sectional study of average-risk adults aged 50-84. Cologuard performance in patients ages 45 to 49 years was estimated by sub-group analysis of near-age groups. Colonoscopies performed for a positive result may find as the most clinically significant lesion: colorectal cancer [4.0%], advanced adenoma (including sessile serrated polyps greater than or equal to 1cm diameter) [20%] or non- advanced adenoma [31%]; or no colorectal neoplasia [45%]. These estimates are derived from a prospective cross-sectional screening study of 10,000 individuals at average risk for colorectal cancer who were screened with both Cologuard and colonoscopy. (Hilton Mock. et al, N Engl J Med 2014;370(14):2612-0553.) Cologuard may produce a false negative or false positive result (no colorectal cancer or precancerous polyp present at colonoscopy follow up). A negative Cologuard test result does not guarantee the absence of CRC or advanced adenoma (pre-cancer). The current Cologuard screening interval is every 3 years. ([place] [employer] and U.S. Multi-Society Task Force). Cologuard performance data in a 10,000 patient pivotal study using colonoscopy as the reference method can be accessed at the following location: www.Publer/results. Additional description of the Cologuard test process, warnings and precautions can be found at www.SpotFodoogVIVArd.StyleSaint. Stool specimen (specimen) 09/07/2023 11:30 AM EDT 09/09/2023 1:43 PM EDT Rebecca Cardenas [facility] LAB MOLECULAR DIAGNOSTICS ORD ERABLES Final Result [facility] (CLIA #:[id number]) [place] [address] [address], * CT Low Dose Screening (02/25/2023 2:26 PM EST) Anatomical Region Laterality Modality Chest Computed Tomogra phy 02/25/2023 2:26 PM EST Narrative 02/25/2023 4:[address] Chest LDCT Lung Program Reason: Other:; SUPERVISING MAX YIP MD ??LDCT LUNG CA SCREENING PROGRAM PATSY [address] YR H; Clinical Question(s): Routine; Special Instructions: BOOK AT [address] [place] [address] ??BOOK AFTER 10 23 22 ??NO CHEST CT IN THE LAST 12 MONTHS ??NO LUNG CA OR SIGNS OR SYMPTOMS OFF LUNG CA Visit type: Annual Screening TECHNIQUE: Low-dose helical CT of the chest without IV contrast (Adult Lung Cancer Screening) protocol was performed. Coronal reformats were obtained. Weight-based protocol using automatic tube modulation was used to optimize exposure parameters. COMPARISON: 10/23/2021 FINDINGS: LUNG NODULES (measured on thin axial series 5): RIGHT lung: None. LEFT lung: No new nodules. Unchanged 2 mm granuloma in the left lower lobe series 5 image 168. OTHER FINDINGS: Screening Technician view findings, lines and tubes: None. Trachea and airways: Patent without evidence of tracheal or endobronchial lesion. Lungs and pleura: Clear lungs. No effusion or pneumothorax. Mediastinum and makenzie: No mass or hematoma. No mediastinal or hilar lymphadenopathy. No esophageal abnormality. Partially imaged thyroid is unremarkable. Heart: Heart is normal in size. No pericardial effusion. Moderate coronary artery calcification. Aorta: Mild vascular calcification but no aneurysm. Pulmonary arteries: Mildly enlarged pulmonary artery at 31 mm. Chest wall soft tissues: No axillary adenopathy. No acute abnormality Diaphragm: Intact. Upper abdomen: Unchanged 1.7 x 1.4 cm nodule at the left adrenal gland with low-attenuation supportive of adrenal adenoma. This is more completely imaged and unchanged from CT abdomen of 09/2021. Cholelithiasis. Bones: No acute abnormality. Osteopenic bones and mild multilevel disc degenerative changes. IMPRESSION: 1. LungRad Category: 1 Negative. Definitely benign nodule(s) ??with specific calcifications: complete, central, popcorn, concentric, rings and fat containing nodules. Continue annual screening with LDCT in 12 months 2. No significant additional findings requiring further evaluation. Lung-RAD Category Modifier: None. Categorization based on Lung-RADS 2022 criteria. [email or web address] WSN: [id number] Ordering Physician: Rebecca Cardenas Dictated By: ?Livia Mahoney MD Dictated Date/Time: ?02/25/23 4:21 pm Reviewed By: ?Livia Mahoney MD Signed By: ? Livia Mahoney MD Signed Date/Time: ? 02/25/23 4:21 pm Transcribed By: ? CSB Transcribed Date/Time: ?02/25/23 4:12 pm Procedure Note Sydniter, Image - 02/25/2023 CT Chest LDCT Lung Program Reason: Other:; SUPERVISING MAX YIP MD LDCT LUNG CA SCREENINGPROGRAM VUTTRNY 47 PK YR H; Clinical Question(s): Routine; Special Instructions:BOOK AT [address] [place] [address] BOOK AFTER [address] IN THELAST 12 MONTHS NO LUNG CA OR SIGNS OR SYMPTOMS OFF LUNG CA Visit type: Annual Screening TECHNIQUE: Low-dose helical CT of the chest without IV contrast (AdultLung Cancer Screening) protocol was performed. Coronal reformats wereobtained. Weight-based protocol using automatic tube modulation was used tooptimize exposure parameters. COMPARISON: 10/23/2021 FINDINGS: LUNG NODULES (measured on thin axial series 5): RIGHT lung: None. LEFT lung: No new nodules. Unchanged 2 mm granuloma in the left lower lobe series 5 image 168. OTHER FINDINGS: Screening Technician view findings, lines and tubes: None. Trachea and airways: Patent without evidence of tracheal orendobronchial lesion. Lungs and pleura: Clear lungs. No effusion or pneumothorax. Mediastinum and makenzie: No mass or hematoma. No mediastinal or hilar lymphadenopathy. No esophageal abnormality. Partially imaged thyroid is unremarkable. Heart: Heart is normal in size. No pericardial effusion. Moderatecoronary artery calcification. Aorta: Mild vascular calcification but no aneurysm. Pulmonary arteries: Mildly enlarged pulmonary artery at 31 mm. Chest wall soft tissues: No axillary adenopathy. No acute abnormality Diaphragm: Intact. Upper abdomen: Unchanged 1.7 x 1.4 cm nodule at the left adrenal glandwith low-attenuation supportive of adrenal adenoma. This is more completelyimaged and unchanged from CT abdomen of 09/2021. Cholelithiasis. Bones: No acute abnormality. Osteopenic bones and mild multilevel disc degenerative changes. IMPRESSION: 1. LungRad Category: 1 Negative. Definitely benign nodule(s) withspecific calcifications: complete, central, popcorn, concentric, rings and fatcontaining nodules. Continue annual screening with LDCT in 12 months 2. No significant additional findings requiring further evaluation.Lung-RAD Category Modifier: None. Categorization based on Lung-RADS 2 criteria. [email or web address] WSN: [id number] Ordering Physician: Rebecca Cardenas Dictated By: Livia Mahoney MD Dictated Date/Time: 02/25/23 4:21 pm Reviewed By: Livia Mahonye MD Signed By: Livia Mahoney MD Signed Date/Time: 02/25/23 4:21 pm Transcribed By: PARVEEN Transcribed Date/Time: 02/25/23 4:12 pm Rebecca Cardenas CNP IMG CT PROCEDURES Edited Resu lt - Final * Colonoscopy (07/11/2010) Colonoscopy normal; 10 year f/u recommended Historical Provider HEALTH MAINTENANCE Final Result from Last 3 Months or Most Recently Relevant to Health Maintenance Insurance [facility] Care Teams Recycling Director Relationship Specialty Start Date End Date Rebecca Cardenas CNP [address] [place] [address] PCP - General Family Medicine 01/08/22
--- OUTSIDE RECORDS SUMMARY | 2024-03-14 18:05 | XMS_ITS | Encounter Summary ---
Author Organization [employer] Address [address] [facility] [address] [place] [address] Care Team Providers Care Android Ui Developer Name Role Phone Rebecca Cardenas CNP Primary Care Provider [phone] Reason for Visit * Reason Comments Med Refill Encounter Details Date Type Department Care Team (Late st Contact Info) Description 02/29/2024 Refill [facility] MEDICAL [address] [place] [address] Rebecca Cardenas CNP [address] [place] [address] Essential (primary) hypertension Social History Tobacco Use Types Packs/Day Years [...] encounter Miscellaneous Notes * Telephone Encounter - Kofi Paz - 02/29/2024 12:17 PM EST Patient left VM requesting refill metoprolol tartrate(Lopressor)75 mg tab.Please refill medication. documented in this encounter Plan of Treatment Upcoming Encounters Date Type Department Care Team (Late st Contact Info) Description 05/03/2024 2:30 PM EDT Office Visit [facility] MEDICAL [address] [place] [address] Rebecca Cardenas CNP [address] [facility] [place] [address] documented as of this encounter Visit Diagnoses Diagnosis Essential (primary) hypertension Unspecified essential hypertension documented in this encounter Additional Health Concerns Assessment Noted Time PHQ-9 Depression Total Score: 5 07/29/19 24 3:16 PM EDT documented as of this encounter Care Teams Android Ui Developer Relationship Specialty Start Date End Date Rebecca Cardenas CNP [address] [facility] [place] [address] PCP - General Family Medicine 01/08/22 documented as of this encounter
--- OUTSIDE RECORDS SUMMARY | 2024-03-14 18:05 | XMS_ITS | Encounter Summary ---
Author Organization [employer] Address [address] [place] [address] [address] [address] Care Team Providers Care Digital Service Engineer Name Role Phone Rebecca Cardenas CNP Primary Care Provider [phone] Reason for Referral * Consultation (Routine) - Authorized Specialty Diagnoses / Procedures Referred By Nery ventura Referred To Contact Pain Medicine Diagnoses Other chronic pain Failed back syndrome Epidural fibrosis Rebecca Cardenas CNP [address] [place] [address] Phone: tel: fax: [facility], [address] [place], [place] Phone: tel: fax: Referral ID Status Reason Start Date Expiration Date Visits Requested Visits Authorized [id number] Authorized Specialty Services Required 03/04/2024 03/04/2025 1 1 Reason for Visit * Reason Onset Date Comments insurance referral 03/04/2024 Encounter Details Date Type Department Care Team (Late st Contact Info) Description 03/04/2024 Telephone [facility] [address] [place] [address] Rebecca Cardenas CNP [address] [place] [address] insurance referral Social History Tobacco Use Types Packs/Day Years [...] encounter Miscellaneous Notes * Telephone Encounter - Kelly Ferguson - 03/09/2024 10:05 AM EST Faxed auth to office * Telephone Encounter - Brooklynn Rodas CMA - 03/04/2024 12:39 PM EST Fax from [facility] requesting the following: Insurance Rayle Baltimore Policy #: [id number] Provider name: Dr walker Number of visits: 12 Dx code: [id number] Requesting referral be faxed to [phone] Office contact: [phone] documented in this encounter Plan of Treatment Upcoming Encounters Date Type Department Care Team (Late st Contact Info) Description 05/03/2024 2:30 PM EDT Office Visit [facility] MED[facility] [address] [place] [address] Rebecca Cardenas CNP [address] [place] [address] Scheduled Referrals Name Type Priority Associated Diagnoses Orde r Schedule Referral to Pain Medicine Outpatient Referral Routine Other chronic pain Failed back syndrome Epidural fibrosis Expected: 03/04/2024 (Approximate), Expires: 03/04/2025 documented as of this encounter Visit Diagnoses Diagnosis Other chronic pain- Primary Failed back syndrome Other unspecified back disorder Epidural fibrosis documented in this encounter Additional Health Concerns Assessment Noted Time PHQ-9 Depression Total Score: 5 07/29/19 24 3:16 PM EDT documented as of this encounter Care Teams Digital Service Engineer Relationship Specialty Start Date End Date Rebecca Cardenas CNP [address] [place] [address] PCP - General Family Medicine 01/08/22 documented as of this encounter
--- OUTSIDE RECORDS SUMMARY | 2024-03-14 18:05 | XMS_ITS | Clinical Summary ---
Author Organization [facility] Address [address] [place] [address] Care Team Providers Care Director Appointment Name Role Phone Unavailable Primary Care Provider Unavailabl e Social History Tobacco Use Types Packs/Day Years Used Date Smoking Tobacco: Never Assessed Sex and Gender Information Value Date Recorded Sex Assigned at Not on file Gender Identity Not on file Sexual Orientation Not on file Last Filed Vital Signs Vital Sign Reading Time Taken Comments Blood Pressure 124/82 03/19/2011 1:30 PM EST Pulse 80 03/19/2011 1:30 PM EST Temperature 36.5 ??C (97.7 ??F) 03/19/2011 1:30 PM ES T Respiratory Rate 12 03/19/2011 1:30 PM EST Oxygen Saturation - - Inhaled Oxygen Concentration - - Weight - - Height - - Body Mass Index - - Plan of Treatment Health Maintenance Due Date Last Done Comments Hepatitis C Virus Screening 1955 DTaP/Tdap/Td Vaccines (1 - Tdap) 1972 Pneumococcal Vaccines 50+ (1 of 1 - PCV) 07/28/2003 Zoster (Shingles) Vaccine (1 of 2) 07/28/2003 COVID-19 Vaccine ( - 2023-2 5 season) 2023 RSV Vaccine 60 years and old er and Patients (1 - 1-dose 75+ series) 2028 Hepatitis B Vaccines Aged Out No long er eligible based on patient's age to complete this topic
== END 2024-03-14 14:09 | disposition home or self-care (01) ==
PROVIDERS: PCP Nurse Practitioner Family; Visit Provider Internal Medicine
DX: M25.48 Effusion, other site (principal); M54.51 Vertebrogenic low back pain
CPT/HCPCS: 99214

== ENCOUNTER → 2024-03-14 13:22 | Outpatient (BNVA) | payer OTHER, SELFPAY | PROVIDERS: PCP Nurse Practitioner Family; Visit Provider Internal Medicine ==

== ENCOUNTER → 2024-04-19 12:53 | Outpatient (BNV) | payer MEDICARE, SELFPAY | PROVIDERS: PCP Nurse Practitioner Family; Visit Provider Radiology Diagnostic Radiology | DX: M25.48 Effusion, other site (principal) | CPT/HCPCS: 72148 ==

== ENCOUNTER 2024-04-19 12:54 | Outpatient (REF) | payer MEDICARE, SELFPAY ==
--- NOTE | ~2024-04-19 | MR_ITS ---
CLINICAL HISTORY: M25.48 - Effusion, other site MRI lumbar spine without contrast Comparison: 02/19/2024 Findings: No significant alignment abnormality. Degenerative type endplate marrow changes are present. There is no suspicious bone lesion. There is a mild chronic compression fracture involving the superior endplate of L1. No acute fracture. The conus is at the L1 level. There is no mass effect on the conus. L1-L2: Minimal disc bulge. No significant central canal or neural foraminal narrowing. L2-L3: Mild broad-based disc bulge mild mass effect on the thecal sac. Mild facet osteoarthritis. Mild narrowing of the left neural foramen. L3-L4: Moderate broad-based disc bulge with mild mass effect on the thecal sac. Mild facet osteoarthritis and ligamentum flavum hypertrophy. Mild narrowing of the left neural foramen. L4-L5: Mild broad-based disc bulge. Mild facet osteoarthritis, ymqd-zylpdke-tgqk-right. Prior right laminotomy. Left-sided ligamentum flavum hypertrophy. Minimal mass effect on the thecal sac. Mild narrowing of the right neural foramen. L5-S1: Mild broad-based disc bulge. Tiny central and left paracentral annular tear. Mild mass effect on the thecal sac. Severe osteoarthritis of the right facet joint with mild mass effect on the right descending nerve root. Moderate osteoarthritis of the left facet joint. No significant neural foraminal stenosis. There is a 19 mm cyst within the left ovary. There is a 2.3 cm cyst within the right kidney. Impression: 1. Multilevel spondylosis and facet osteoarthritis as above. 2. No acute abnormality of the lumbar spine. 3. Small left ovarian cyst. 4. Mild chronic compression fracture at L1. This document has been electronically signed by: Bonnie Agrawal MD on 04/20/2024 16:35:08
--- OUTSIDE RECORDS SUMMARY | 2024-04-19 15:58 | XMS_ITS | Clinical Summary ---
Author Organization [facility] Address [address] [place] [address] Care Team Providers Care Supervisor Machining Name Role Phone Rebecca Dawkins Primary Care Provider [phone] Allergies Active Allergy Reactions Criticality Noted Date [...] age to complete this topic Care Teams Supervisor Machining Relationship Specialty Start Date End Date Rebecca Dawkins [address] [place] [id number] PCP - General Family Medicine 04/15/16
--- OUTSIDE RECORDS SUMMARY | 2024-04-19 15:58 | XMS_ITS | Clinical Summary ---
Author Organization [facility] Address [address] [place] [address] Care Team Providers Care Residential Carpenter Name Role Phone Unavailable Primary Care Provider [...]
--- OUTSIDE RECORDS SUMMARY | 2024-04-19 15:58 | XMS_ITS | Clinical Summary ---
Author Organization [facility] Address [address] [place] [address] Care Team Providers Care Straight Cutter Name Role Phone RangelkerlineOsirisRebecca Eulalio COUNTY TAX ASSESSOR Primary Care Provider [phone] Family History Medical History Relation Comments Cancer [...] patient's age to complete this topic Insurance [facility] Care Teams Straight Cutter Relationship Specialty Start Date End Date Rebecca Cardenas NP [address] [place] [phone] PCP - General Nurse Practitioner 10/24/21
--- OUTSIDE RECORDS SUMMARY | 2024-04-19 15:58 | XMS_ITS | Encounter Summary ---
Author Organization [employer] Address [address] [place] [address] Care Team Providers Care Consumer Studies Professor Name Role Phone Rebecca Cardenas CNP Primary Care Provider [phone] Encounter Details Date Type Department Care Team (Late st Contact Info) Description 01/08/2022 Abstract [facility] MED[facility] [address] [place] [address] Rebecca Cardenas CNP [address] [place] [address] Social History Tobacco Use Types Packs/Day Years [...] Description 05/03/2024 2:30 PM EDT Office Visit [facility] MED[facility] [address] [place] [address] Rebecca Cardenas CNP [address] [place] [address] documented as of this encounter Visit Diagnoses Not on filedocumented in this encounter Care Teams Consumer Studies Professor Relationship Specialty Start Date End Date Rebecca Cardenas CNP [address] [place] [address] PCP - General Family Medicine 01/08/22 documented as of this encounter
--- OUTSIDE RECORDS SUMMARY | 2024-04-19 15:58 | XMS_ITS | Clinical Summary ---
Author Organization [employer] Address [address] [place] [address] [address] [place] [address] Care Team Providers Care Field Artillery Crewmember Name Role Phone Rebecca Cardenas [employer] SEQUESTRATION PLANT OPERATOR Primary Care Provider [phone] Allergies Active Allergy Reactions Criticality Noted Date [...] mouth Once per day. 06/03/19 24 Active metoprolol tartrate (Lopressor) 75 MG tabletIndication s:Essential (primary) hypertension TAKE 1 TABLET BY MOUTH TWICE A DAY 180 tablet 1 02/28/19 25 Active oxyCODONE (Roxicodone) 5 MG immediate release tabletIndication s:Failed back syndrome,Epidura l fibrosis Take 1 tablet (5 mg) by mouth 5 (five) times a day for 28 days. 140 tablet 03/24/19 25 025 Active oxyCODONE (Roxicodone) 5 MG immediate release tabletIndication s:Failed back syndrome,Epidura l fibrosis Take 1 tablet (5 mg) by mouth 5 (five) times a day for 28 days. 140 tablet 02/24/19 25 025 Discontinued(Re order (will not trigger notification [...] Encounters Date Type Department Care Team Description 03/23/[address] [address] Rebecca Cardenas CNP Failed back syndrome; Epidural fibrosis 03/04/[address] [address] Rebecca Cardenas CNP insurance referral 02/29/[address] [address] Rebecca Cardenas CNP Essential (primary) hypertension 02/25/[address] [address] Rebecca Cardenas CNP Failed back syndrome; Epidural fibrosis 02/03/2024 3:00 PM EST Office Visit [facility] [address] [place] [address] Rebecca Cardenas CNP Type 2 diabetes mellitus with stage 3a chronic kidney disease, without long-term current use of insulin (CMS/HCC) (Primary Dx); Mixed hyperlipidemia; Failed back syndrome; Gastroesophageal reflux disease without esophagitis; Primary hypertension; Severe episode of recurrent major depressive disorder, without psychotic features (CMS/HCC); Anxiety; Other chronic pain 01/27/[address] [facility] MEDICAL [address] [place] [address] Rebecca Cardenas CNP Failed back syndrome; Epidural [...] Description 05/03/2024 2:30 PM EDT Office Visit [place] [facility] [address] [place] [address] Rebecca Cardenas, [employer]BON SEQUESTRATION PLANT OPERATOR [address] [place] [address] Health Maintenance Due Date Last Done Comments CT Colonography 1955 FIT 1953 FOBT 1955 Sigmoidoscopy 1955 Diabetes: Foot Exam 07/28/1963 Eye Exam 07/28/1963 Alcohol/Substance Use Screening 1965 Hepatitis C Screening 07/28/1971 Pneumococcal Vaccine: 50+ Years (1 of 2 - PCV) 1972 Zoster Vaccines (1 of 2) 07/28/2003 RSV [...] (Negative) Lay letter mailed to patient WSN: [id number] Ordering Physician: Rebecca Cardenas Dictated By: ?Charis KINGDarian Dictated Date/Time: ?11/11/23 2:58 pm Reviewed By: ?Darian Vizcaino MD Signed By: ? Darian Vizcaino MD Signed Date/Time: ? 11/11/23 2:58 pm Transcribed By: ? CSB Paperhanger Contractor Date/Time: ? 11/11/23 2:55 pm Birads: Procedure [...] (Negative) Lay letter mailed to patient WSN: [id number] Ordering Physician: Rebecca Cardenas Dictated By: Darian Vzicaino MD Dictated Date/Time: 11/11/23 2:58 pm Reviewed By: Darian Vizcaino MD Signed By: Darian Vizcaino MD Signed Date/Time: 11/11/23 2:58 pm Transcribed By: CSB Paperhanger Contractor Date/Time: 11/11/23 2:55 pm Birads: Rebecca Cardenas CNP IM BI PROCEDURES Final Resul t * (ABNORMAL) Hemoglobin A1c (11/05/2023 1:00 PM EDT) Hemoglobin A1c 6.0(H) 4.8 - 5.6 % [facility] 1 Comment: ? Prediabetes: 5.7 - 6.4 ? Diabetes: >6.4 ? Glycemic control for adults with diabetes: <7.0 Blood Venous blood specimen / Unknown 11/05/2023 1:00 PM EDT 11/05/2023 Narrative [facility] 1 - 11/06/2023 6:05 AM EDT Performed at: ??01 - [facility] [address] ??[id number] Marble Mechanic Helper: Haydee Carrizales MD, Phone: ??[phone] Rebecca Cardenas CARBON SEQUESTRATION PLANT OPERATOR LAB BLOOD ORDERABLES Final Re sult Performing Organization Address [facility] de Phone Number [facility] 1 * Lipid Panel, Standard (11/04/2023 3:06 PM EDT) Pathologist [facility] Cholesterol, Total 180 100 - 199 mg/dL [...] AM EDT Performed at: ??01 - [facility] [address] ??[id number] Marble Mechanic Helper: Haydee Carrizales MD, Phone: ??[phone] Rebecca Cardenas CARBON SEQUESTRATION PLANT OPERATOR LAB BLOOD ORDERABLES Final Re sult Performing Organization Address [facility] Co de Phone Number [facility] 1 * Cologuard?? colon cancer screening (09/07/2023 11:30 AM EDT) Cologuard Result Negative Negative 09/15/19 24 5:46 PM EDT [employer] (CLIA #:[id number]) Comment: NEGATIVE TEST RESULT. A negative Cologuard [...] Mock. et al, N Engl J Med 2014;370(14):1286- 1297) The normal value (reference range) for this assay is negative. COLOGUARD RE-SCREENING RECOMMENDATION: Periodic colorectal cancer screening is an important part of preventive healthcare for asymptomatic individuals at average risk for colorectal cancer. ??Following a negative Cologuard result, the Australian Cancer Society and U.S. Multi-Society Task Force screening guidelines recommend a Cologuard re-screening interval of 3 years. References: Australian Cancer Society Guideline for Colorectal Cancer Screening: https://www.cancer.org/cancer/zjspa-ojcnwg-rvwtfu/tddaeuisc-fsojyqakg-rdlidtc/ac s-rec ommendations.html.; Nick BAE, Domonique OCHOA, Kieran GilbertK, Colorectal Cancer Screening: Recommendations for Physicians and Patients from the U.S. Multi-Society Task Force on Colorectal Cancer Screening , Am J Gastroenterology 2017; 112:9785-2970. TEST DESCRIPTION: Composite algorithmic analysis of stool [...] screened with both Cologuard and colonoscopy. (Hilton Liriano et al, N Engl J Med 2014;370(14):7984-0587.) Cologuard may produce a false negative or false positive result (no colorectal cancer or precancerous polyp present at colonoscopy follow up). A negative Cologuard test result does not guarantee the absence of CRC or advanced adenoma (pre-cancer). The current Cologuard screening interval is every 3 years. (Australian Cancer Society and U.S. Multi-Society Task Force). Cologuard performance data in a 10,000 patient pivotal study using colonoscopy as the reference method can be accessed at the following location: www.[employer]/results. Additional description of the Cologuard test process, warnings and precautions can be found at www.KabongoogWhatSalonrd.com. Stool specimen (specimen) 09/07/2023 11:30 AM EDT 09/09/2023 1:43 PM EDT Rebecca Cardenas [facility] LAB MOLECULAR DIAGNOSTICS ORD ERABLES Final Result [employer] [facility] (CLIA #:[id number]) [place] [address], * CT Low Dose Screening (02/25/2023 2:26 PM EST) Anatomical Region Laterality Modality Chest Computed Tomogra phy 02/25/2023 2:26 PM EST Narrative 02/25/2023 4:[address] Chest LDCT Lung Program Reason: Other:; SUPERVISING MAX YIP MD ??LDCT LUNG CA SCREENING PROGRAM PATSY 47 PK YR H; Clinical Question(s): Routine; Special Instructions: BOOK AT [address] [place] [address] ??BOOK AFTER 10 23 22 ??NO CHEST [...] lobe series 5 image 168. OTHER FINDINGS: Sexual Health Physician view findings, lines and tubes: None. Trachea [...] None. Categorization based on Lung-RADS 2022 criteria. [email or web address] WSN: [id number] Ordering Physician: Rebecca Cardenas Dictated By: ?Livia Mahoney MD Dictated Date/Time: ?02/25/23 4:21 pm Reviewed By: ?Livia Mahoney MD Signed By: ? Livia Mahoney MD Signed Date/Time: ? 02/25/23 4:21 pm Transcribed By: ? CSB Transcribed Date/Time: ?02/25/23 4:12 pm Procedure Note Donharrisoninterpreter, Image - 02/25/2023 CT Chest LDCT Lung Program Reason: Other:; SUPERVISING MAX YIP MD LDCT LUNG CA SCREENINGPROGRAM VUTTRROSCOE 47 PK YR H; Clinical Question(s): Routine; Special Instructions:BOOK AT [address] [place] [address] BOOK AFTER 10 23 22 NO CHEST [...] lobe series 5 image 168. OTHER FINDINGS: Sexual Health Physician view findings, lines and tubes: None. Trachea [...] Category Modifier: None. Categorization based on Lung-RADS 2021 criteria. [email or web address] WSN: [id number] Ordering Physician: Rebecca Cardenas Dictated By: Livia Mahoney MD Dictated Date/Time: 02/25/23 4:21 pm Reviewed By: Livia Mahoney MD Signed By: Livia Mahoney MD Signed Date/Time: 02/25/23 4:21 pm Transcribed By: PARVEEN Transcribed Date/Time: 02/25/23 4:12 pm Rebecca Cardenas CNP IM CT PROCEDURES Edited Resu lt - Final * Hm Colonoscopy (07/11/2010) Colonoscopy normal; 10 year f/u recommended Historical Provider HEALTH MAINTENANCE Final Result from Last 3 Months or Most Recently Relevant to Health Maintenance Insurance [facility] Care Teams Field Artillery Crewmember Relationship Specialty Start Date End Date Rebecca Cardenas CNP [address] [place] [address] PCP - General Family Medicine 01/08/22
--- OUTSIDE RECORDS SUMMARY | 2024-04-19 15:58 | XMS_ITS | Encounter Summary ---
Author Organization [employer] Address [address] [facility] 7t [place] [address] Care Team Providers Care Electrical Designer Drafter Name Role Phone Rebecca Cardenas CNP Primary Care Provider [phone] Reason for Visit * Reason Onset Date Comments Med Refill 03/23/2024 Encounter Details Date Type Department Care Team (Late st Contact Info) Description 03/23/2024 Refill [facility] MEDICAL [address] [place] [address] Rebecca Cardenas CNP [address] [place] [address] Failed back syndrome; Epidural fibrosis Social History [...] Telephone Encounter - Brooklynn Rodas CMA - 03/23/2024 1:18 PM EST Oxycodone 5mg Masspat Last fill Date: 02/27/24 Last OV: 02/03/24 Next OV: 05/03/24 Last UTOX: 11/04/23 CSA Date: 07/29/23 DNF Date: 03/26/24 * Telephone Encounter - Dean Campbell CMA - 03/23/2024 12:46 PM EST Pt called and left a message requesting a refill on their oxyCODONE (Roxicodone) 5 MG immediate release tablet documented in this encounter Plan of Treatment Upcoming Encounters Date Type Department Care Team (Late st Contact Info) Description 05/03/2024 2:30 PM EDT Office Visit [place] [facility] [address] [place] [address] ChalRebecca sanchez CNP [address] [place] [address] documented as of this encounter Visit Diagnoses Diagnosis Failed back syndrome Other unspecified back disorder Epidural fibrosis documented in this encounter Additional Health Concerns Assessment Noted Time PHQ-9 Depression Total Score: 5 07/29/19 24 3:16 PM EDT documented as of this encounter Care Teams Electrical Designer Drafter Relationship Specialty Start Date End Date Rebecca Cardenas CNP [address] [place] [address] PCP - General Family Medicine 01/08/22 documented as of this encounter
== END 2024-04-19 12:55 | disposition home or self-care (01) ==
LOC: HO.MRI 12:54
PROVIDERS: PCP Nurse Practitioner Family; Visit Provider Internal Medicine
DX: M25.48 Effusion, other site (principal); M54.51 Vertebrogenic low back pain
CPT/HCPCS: 72148

== ENCOUNTER 2024-07-16 16:00 | Outpatient (REF) | payer MEDICARE, OTHER, SELFPAY ==
--- NOTE | ~2024-07-16 | MR_ITS ---
EXAMINATION: MR LUMBAR SPINE WITH AND WITHOUT CONTRAST CLINICAL INFORMATION: Primary LOIN TRIMMER lymphoma. COMPARISON: 04/19/2024. TECHNIQUE: Multiplanar multisequence MR imaging of the lumbar spine was done without IV contrast. Examination was performed on a 1.5 Camila Siemens magnet, utilizing standard sequences. FINDINGS: CORONAL ALIGNMENT: -Moderate right convex scoliosis, apex at L2-3. There is a mild rotatory component. SAGITTAL ALIGNMENT: - Normal lordosis. -There is a trace, 2 mm retrolisthesis of L1 on L2. Similar finding at L3-4, and L4-5. LUMBOSACRAL JUNCTION: -Normal. There are 5 vox-imm-fwflixn lumbar-type vertebral bodies. VERTEBRAL BODIES/BONE MARROW: -Mild chronic appearing compression deformity superior endplate of L1. -No additional compression deformity, or acute fracture. No gross bone marrow edema identified. No abnormal infiltrating bone marrow signal. Prominent fatty type endplate changes present at L2-3, and lesser changes at L3-4. DISCS: -Severe loss of disc height and signal L2-3. Moderate loss at the other levels. SPINAL CANAL: -No abnormal developmental findings. CONUS MEDULLARIS: -Terminates at L1. Morphology and signal is normal. INTRADURAL NERVE ROOTS: - Within normal limits. -No intra or extra medullary abnormal enhancement identified. Axial Disc Space Images: T12-L1: Minimal shallow disc bulge, slightly asymmetric to the right. Mild right greater than left hypertrophic degenerative facet changes, with mild posterior ligamentous thickening/infolding. There is minimal central canal narrowing, and no significant neural foraminal narrowing. No change. L1-L2: Shallow diffuse disc bulge, mild bilateral hypertrophic facet changes, mild posterior ligamentous thickening/infolding, however no significant central canal narrowing or neural foraminal narrowing. No change. L2-L3: Severe disc degeneration. There is a shallow diffuse disc osteophytic bulge with a superimposed left paracentral, lateral, and foraminal disc osteophytic protrusion. Coupled with mild to moderate hypertrophic degenerative facet changes bilaterally, mild posterior ligamentous thickening/infolding, the combination of findings is resulting in mild to moderate central canal stenosis. There is moderate left subarticular recess stenosis with possible mild impingement of the traversing left L3 roots. There is moderate left neural foraminal narrowing. No change. L3-L4: There is a diffuse irregular disc bulge present with superimposed right foraminal and left foraminal extrusions, which course into the lateral to foramen regions on both sides. There is mild to moderate hypertrophic degenerative facet change bilaterally, with posterior ligamentous thickening/infolding, resulting in moderate central canal stenosis, mild to moderate left greater than right subarticular recess stenosis, and moderate to severe left neural foraminal stenosis. There is contact and deviation of the traversing left L3 roots without definite impingement. No change. L4-L5: There is been a prior right hemilaminotomy. There is been stripping of the right ligamentum flavum. There is a residual shallow disc osteophytic ridge complex, moderate left greater than right hypertrophic degenerative facet change, resulting in mild central canal narrowing, mild bilateral subarticular recess narrowing, and mild to moderate right and mild left neural foraminal stenosis. There is contact but no definite impingement of the traversing bilateral L4 roots right greater than left. No change. L5-S1: Severe right and moderate left hypertrophic degenerative facet change. Shallow diffuse disc bulge, with central annular fissuring. There is a probable right hemilaminotomy. There has been stripping of the right ligamentum flavum. There is mild central canal stenosis, mild bilateral subarticular recess stenosis, and mild bilateral neural foraminal stenosis without evidence of nerve root impingement. IMAGED SI JOINTS: Mild degenerative changes bilaterally. PARAVERTEBRAL AND INCLUDED EXTRASPINAL SOFT TISSUES: -There is a right parapelvic cyst. There are extrarenal bilateral bilaterally. There is no aortic aneurysm. No abnormal fluid collection, and no abnormal lymphadenopathy. MR/MR lumbar spine wo/w con IMPRESSION: 1. There is no intramedullary or extramedullary enhancement present to suggest active lumbar lymphoma. 2. There is moderate multilevel lumbar spondylosis, without evidence of prior right hemilaminotomies at L4-5 and L5-S1. There is been no significant interval change in the appearance of lumbar spine since 04/20/2023. Electronically signed by: Solis Rosa MD 07/18/2024 03:09 PM EDT
--- NOTE | ~2024-07-16 | MR_ITS ---
CLINICAL HISTORY: PRIMARY DOCTOR OF AUDIOLOGY LYMPHOMA MR thoracic spine with and without gadolinium Comparison: None Findings: There is no evidence of white matter lesion or abnormal postcontrast enhancement involving the spinal cord. No extra-axial mass identified. No abnormal vertebral body enhancement. Vertebral body height and alignment are normal. Mild multilevel disc space narrowing and disc desiccation with small posterior osteophytes, most pronounced on the right at T7-8 and T8-9. There is mild right-sided neural foraminal narrowing at these levels. No significant central canal stenosis throughout the thoracic spine. Paraspinous musculature intact. IMPRESSION: No abnormal enhancement to suggest intra-axial or extra-axial disease of the thoracic spine. Multilevel degenerative changes. This document has been electronically signed by: Ronaldo Klein MD on 07/18/2024 11:58:52
--- NOTE | ~2024-07-16 | MR_ITS ---
EXAMINATION: MR BRAIN WITHOUT AND WITH CONTRAST CLINICAL INFORMATION: Primary DIRECT MARKETING REPRESENTATIVE lymphoma. Status post surgery. Patient complaining of right facial weakness, slurred speech, and dizziness. COMPARISON: No prior available. Correlation with past MRIs and reports would be extremely helpful. TECHNIQUE: Multiplanar, multisequence MRI of the brain was obtained before and after the intravenous administration of 7 mL IV Gadavist. FINDINGS: There has been a right suboccipital craniotomy. There is mild dural thickening and enhancement at this region, expected postoperatively. There is otherwise is no abnormal intra or extra-axial enhancement after contrast administration. There is a small amount of extra-axial fluid at the craniotomy site, and there is a small amount of fluid within the right mastoid air cells. There is no fluid within the right tympanic space. There is no mass effect, edema, or abnormal enhancement in the right inferior cerebellar region, in the region of prior craniotomy. There is subtle increased T2 signal within the right brachium pontis, left corticospinal tract, and bilateral globus pallidus nuclei. These foci are nonspecific, show no diffusion restriction or enhancement, and are likely post therapeutic-related changes. There is no diffusion restriction. There is no intracranial hemorrhage, acute infarction, mass effect, or edema. Ventricles, sulci, and cisterns are normal in size and configuration for patient age. No shift of midline. No abnormal hemosiderin deposition is identified. Midline structures appear normally formed. The pituitary gland appears normal. Posterior fossa structures appear normal. Cerebellar tonsils are appropriately located. Major flow voids are preserved within the skull base. The globes and orbital contents appear normal aside from bilateral lens replacements. Paranasal sinuses are clear bilaterally. Nasal septum is midline without spur. There is a right mastoid effusion. The left mastoids, and bilateral tympanic cavities are normally aerated. Extracranial soft tissues demonstrate no abnormalities. No suspicious bone marrow changes are evident. Atlantoaxial joint is normal. MR/MR head/brain wo/w con IMPRESSION: 1. Expected postoperative changes in the right suboccipital region relating to prior craniotomy. 2. There is no diffusion restriction or abnormal intra or extra-axial enhancement, aside from postoperative changes. There is no definite persistence or recurrence of lymphoma on this examination. 3. Subtly increased foci of T2 signal in the right brachium pontis, left mid caio, and bilateral globus pallidus nuclei are present, likely treatment-related. Correlation with any old imaging is recommended. Electronically signed by: Solis Rosa MD 07/18/2024 01:33 PM EDT RP
--- NOTE | ~2024-07-16 | MR_ITS ---
EXAMINATION: MR CERVICAL SPINE WITHOUT AND WITH CONTRAST CLINICAL INFORMATION: Primary ASW SPECIALIST lymphoma. COMPARISON: There is no prior for comparison. TECHNIQUE: Multiplanar multisequence MR imaging of the cervical spine was done prior to and after the administration 7 mL IV gadolinium. Examination was performed on a 1.5 Camila Siemens unit, using standard sequences. FINDINGS: CORONAL ALIGNMENT: -Normal SAGITTAL ALIGNMENT: -Straightening of the normal lordosis with a minimal reversal centered at C4. -Trace degenerative anterolisthesis C4 on C5. -Trace degenerative retrolisthesis C4 on C5 and C5 on C6. CRANIOCERVICAL JUNCTION/C1-2 ARTICULATIONS: -Intact and aligned. VERTEBRAL BODIES/BONE MARROW: -There are no acute fractures or compression deformities. -There are mild edematous type endplate changes present at C5-6 and C6-7. -There are fatty type endplate changes at C4-5, C5-6, and C7-T1. -There is no additional bone marrow edema identified. No abnormal infiltrating bone marrow signal. There are a few scattered Schmorl's nodes within the endplates. -There is no abnormal bone marrow enhancement. DISCS: -Moderate diffuse loss of disc height and signal, with more severe changes at C5-6 and C6-7. CERVICAL CORD: -Normal in caliber and signal throughout. There is no region of cord impingement or signal abnormality. -There is a 2 mm focus of anterior central cord enhancement at the inferior C1 level (series 17, image 9), with only a faint focus of vague 2 mm correlating enhancement on the axial sequence. This may be vascular in nature. There is no additional abnormal intra or extra medullary enhancement. PARAVERTEBRAL SOFT TISSUES: -There is no prevertebral or paravertebral soft tissue edema or abnormal fluid collection. VISUALIZED INTRACRANIAL STRUCTURES: -Postoperative changes in the suboccipital region on the right, with dural enhancement and suboccipital craniotomy. No abnormal enhancement of the parenchyma of the cerebellum. AXIAL DISC SPACE IMAGING: C2-C3: Minimal disc bulge, without central canal narrowing. Mild bilateral facet hypertrophy and right greater than left uncinate hypertrophy contributes to moderate right and mild left neural foraminal narrowing. C3-C4: Minimal disc bulge, asymmetric to the right, and contiguous with the right greater than left uncinate spurs. There is minimal central canal narrowing. Hypertrophic degenerative facet changes left greater than right, and right greater than left uncinate spurs contribute to moderate to severe bilateral neural foraminal stenosis. C4-C5: Disc bulge present slightly eccentric to the right, contiguous with bilateral uncinate spurs, results in mild central canal narrowing particularly on the right. Mild bilateral facet spurring and right greater than left uncinate spurring contributes to severe right and moderate left neural foraminal stenosis. C5-C6: There is a shallow disc osteophytic ridge complex present, contiguous with bilateral uncinate spurring, indenting upon the ventral thecal sac and resulting in mild central canal narrowing. There is moderate left lateral recess stenosis. There is minimal facet spurring right greater than left. There is extensive right greater than left uncinate spurring, contributing to severe bilateral neural foraminal stenosis. C6-C7: Shallow disc bulge is present without significant central canal narrowing. Mild bilateral neural foraminal narrowing secondary to mild bilateral uncinate spurring. C7-T1: No significant central canal narrowing. No significant neural foraminal narrowing. MR/MR cervical spine wo/w con IMPRESSION: 1. There is a 2 mm punctate focus of enhancement in the central slightly ventral cord at the inferior C1 level as described above, most likely a vascular phenomenon although persistent/recurrent disease is also a consideration, and close attention on follow-up examinations highly recommended. 2. There is no additional abnormal intra-axial or extra medullary enhancement. Expected postoperative changes in the right suboccipital region. 3. There is moderate spondylosis of the cervical spine as described above. Electronically signed by: Solis Rosa MD 07/18/2024 02:03 PM EDT
[2024-07-16] MEDS: gadobutroL 7.5 ML VIAL IVPUSH (17:15)
[2024-07-17] MEDS: gadobutroL 7.5 ML VIAL IVPUSH (16:48)
== END 2024-07-16 16:01 | disposition home or self-care (01) ==
LOC: HO.MRI 16:00
PROVIDERS: PCP Nurse Practitioner Family; Visit Provider Student in an Organized Health Care Education/Training Program
DX: C83.390 Primary central nervous system lymphoma (principal)
CPT/HCPCS: 70553; 72156; 72157; 72158; A9585

== ENCOUNTER → 2024-07-16 16:20 | Outpatient (BNV) | payer MEDICARE, OTHER, SELFPAY | PROVIDERS: PCP Nurse Practitioner Family; Visit Provider Radiology Diagnostic Radiology | DX: M47.892 Other spondylosis, cervical region (principal); R29.810 Facial weakness; R47.1 Dysarthria and anarthria; R42 Dizziness and giddiness; C83.390 Primary central nervous system lymphoma | CPT/HCPCS: 70553; 72156 ==

== ENCOUNTER 2024-07-17 15:38 | Outpatient (REF) | payer MEDICARE, OTHER, SELFPAY ==
--- NOTE | ~2024-07-17 | MR_ITS ---
EXAMINATION: MR LUMBAR SPINE WITH AND WITHOUT CONTRAST CLINICAL INFORMATION: Primary MANAGING COGNITIVE ENGINEER lymphoma. COMPARISON: 04/19/2024. TECHNIQUE: Multiplanar multisequence MR imaging of the lumbar spine was done without IV contrast. Examination was performed on a 1.5 Camila Siemens magnet, utilizing standard sequences. FINDINGS: CORONAL ALIGNMENT: -Moderate right convex scoliosis, apex at L2-3. There is a mild rotatory component. SAGITTAL ALIGNMENT: - Normal lordosis. -There is a trace, 2 mm retrolisthesis of L1 on L2. Similar finding at L3-4, and L4-5. LUMBOSACRAL JUNCTION: -Normal. There are 5 [id number] lumbar-type vertebral bodies. VERTEBRAL BODIES/BONE MARROW: -Mild chronic appearing compression deformity superior endplate of L1. -No additional compression deformity, or acute fracture. No gross bone marrow edema identified. No abnormal infiltrating bone marrow signal. Prominent fatty type endplate changes present at L2-3, and lesser changes at L3-4. DISCS: -Severe loss of disc height and signal L2-3. Moderate loss at the other levels. SPINAL CANAL: -No abnormal developmental findings. CONUS MEDULLARIS: -Terminates at L1. Morphology and signal is normal. INTRADURAL NERVE ROOTS: - Within normal limits. -No intra or extra medullary abnormal enhancement identified. Axial Disc Space Images: T12-L1: Minimal shallow disc bulge, slightly asymmetric to the right. Mild right greater than left hypertrophic degenerative facet changes, with mild posterior ligamentous thickening/infolding. There is minimal central canal narrowing, and no significant neural foraminal narrowing. No change. L1-L2: Shallow diffuse disc bulge, mild bilateral hypertrophic facet changes, mild posterior ligamentous thickening/infolding, however no significant central canal narrowing or neural foraminal narrowing. No change. L2-L3: Severe disc degeneration. There is a shallow diffuse disc osteophytic bulge with a superimposed left paracentral, lateral, and foraminal disc osteophytic protrusion. Coupled with mild to moderate hypertrophic degenerative facet changes bilaterally, mild posterior ligamentous thickening/infolding, the combination of findings is resulting in mild to moderate central canal stenosis. There is moderate left subarticular recess stenosis with possible mild impingement of the traversing left L3 roots. There is moderate left neural foraminal narrowing. No change. L3-L4: There is a diffuse irregular disc bulge present with superimposed right foraminal and left foraminal extrusions, which course into the lateral to foramen regions on both sides. There is mild to moderate hypertrophic degenerative facet change bilaterally, with posterior ligamentous thickening/infolding, resulting in moderate central canal stenosis, mild to moderate left greater than right subarticular recess stenosis, and moderate to severe left neural foraminal stenosis. There is contact and deviation of the traversing left L3 roots without definite impingement. No change. L4-L5: There is been a prior right hemilaminotomy. There is been stripping of the right ligamentum flavum. There is a residual shallow disc osteophytic ridge complex, moderate left greater than right hypertrophic degenerative facet change, resulting in mild central canal narrowing, mild bilateral subarticular recess narrowing, and mild to moderate right and mild left neural foraminal stenosis. There is contact but no definite impingement of the traversing bilateral L4 roots right greater than left. No change. L5-S1: Severe right and moderate left hypertrophic degenerative facet change. Shallow diffuse disc bulge, with central annular fissuring. There is a probable right hemilaminotomy. There has been stripping of the right ligamentum flavum. There is mild central canal stenosis, mild bilateral subarticular recess stenosis, and mild bilateral neural foraminal stenosis without evidence of nerve root impingement. IMAGED SI JOINTS: Mild degenerative changes bilaterally. PARAVERTEBRAL AND INCLUDED EXTRASPINAL SOFT TISSUES: -There is a right parapelvic cyst. There are extrarenal bilateral bilaterally. There is no aortic aneurysm. No abnormal fluid collection, and no abnormal lymphadenopathy. MR/MR lumbar spine wo/w con IMPRESSION: 1. There is no intramedullary or extramedullary enhancement present to suggest active lumbar lymphoma. 2. There is moderate multilevel lumbar spondylosis, without evidence of prior right hemilaminotomies at L4-5 and L5-S1. There is been no significant interval change in the appearance of lumbar spine since 04/20/2023. Electronically signed by: Solis Rosa MD 07/18/2024 03:09 PM EDT
--- NOTE | ~2024-07-17 | MR_ITS ---
CLINICAL HISTORY: PRIMARY INTERACTIVE MEDIA MARKETING SPECIALIST LYMPHOMA MR thoracic spine with and without gadolinium Comparison: None Findings: There is no evidence of white matter lesion or abnormal postcontrast enhancement involving the spinal cord. No extra-axial mass identified. No abnormal vertebral body enhancement. Vertebral body height and alignment are normal. Mild multilevel disc space narrowing and disc desiccation with small posterior osteophytes, most pronounced on the right at T7-8 and T8-9. There is mild right-sided neural foraminal narrowing at these levels. No significant central canal stenosis throughout the thoracic spine. Paraspinous musculature intact. IMPRESSION: No abnormal enhancement to suggest intra-axial or extra-axial disease of the thoracic spine. Multilevel degenerative changes. This document has been electronically signed by: Ronaldo Klein MD on 07/18/2024 11:58:52
== END 2024-07-17 15:39 | disposition home or self-care (01) ==
LOC: HO.MRI 15:38
PROVIDERS: PCP Nurse Practitioner Family; Visit Provider Student in an Organized Health Care Education/Training Program
DX: C83.390 Primary central nervous system lymphoma (principal)
CPT/HCPCS: 72157; 72158

== ENCOUNTER → 2024-07-17 16:00 | Outpatient (BNV) | payer MEDICARE, OTHER, SELFPAY | PROVIDERS: PCP Nurse Practitioner Family; Visit Provider Radiology Vascular & Interventional Radiology | DX: M51.34 Other intervertebral disc degeneration, thoracic region (principal); M47.816 Spondylosis without myelopathy or radiculopathy, lumbar region | CPT/HCPCS: 72157; 72158 ==